=== PATIENT | female | born 1935 | race Caucasian/White ===

== ENCOUNTER 2018-06-15 12:03 | Emergency (ER) | payer MEDICAID | END 2018-06-15 14:27 | disposition home or self-care (01) | LOC: FTE 12:03 | DX: Z76.0 Encounter for issue of repeat prescription (principal); I10 Essential (primary) hypertension; E11.9 Type 2 diabetes mellitus without complications; Z79.84 Long term (current) use of oral hypoglycemic drugs | CPT/HCPCS: 99281; Z7502 ==